=== PATIENT | male | born 2005 | race Caucasian/White ===

== ENCOUNTER 2023-03-06 18:31 | Emergency (ER) | payer OTHER ==
[~2023-03-06] VITALS: Ht 175.3 cm; Wt 89.4 kg
[2023-03-06 19:06] VITALS: BP 119/65; PULSE 66; RESP 20; TEMP 98; O2SAT 98
[2023-03-06] MEDS ORDERED: CLIN300C2 PO (19:16)
[2023-03-06 19:22] VITALS: BP 119/65; PULSE 66; RESP 20; TEMP 98; O2SAT 98
--- NOTE | 2023-03-06 19:22 | NUR ---
Patient discharged with v/s stable. Written and verbal after care instructions given and explained. Patient alert, oriented and verbalized understanding of instructions. Ambulatory with steady gait. All questions addressed prior to discharge. ID band removed. Patient advised to follow up with PMD. Rx of CLINDAMYCIN (SENT) given. Patient educated on indication of medication including possible reaction and side effects. Opportunity to ask questions provided and answered.
== END 2023-03-06 19:22 | disposition home or self-care (01) ==
LOC: MED 18:31
DX: L05.91 Pilonidal cyst without abscess (principal); Z79.2 Long term (current) use of antibiotics
CPT/HCPCS: 99283